=== PATIENT | male | born 1995 | race Caucasian/White ===

== ENCOUNTER 2016-07-13 19:36 | Emergency (ER) | payer SELFPAY | END 2016-07-13 20:50 | LOC: OHEAST 19:36 | DX: Z00.00 Encounter for general adult medical examination without abnormal findings (principal) | CPT/HCPCS: 99201; G0463 ==

== ENCOUNTER → 2016-07-31 17:48 | Emergency (ER) | payer BC ==
[~2016-07-31 17:48] MED LIST: Iohexol 300* (CONTRAST) 10 ML SDV IV ONE; NS 0.9% 1000 ML* 1,000 ML IV ONE; Omeprazole CAP* 20 MG PO ONE; Pantoprazole TAB (NF) 40 MG TAB PO ONE
[2016-07-31 19:44] LABS: Urine Bilirubin Negative (Negative); Urine Glucose Negative (Negative); Urine Nitrite Negative (Negative)
[2016-07-31 20:09] LABS: Hematocrit 44 % (42-52); Hemoglobin 14.9 g/dl (14.0-18.0); Mean Corpuscular HGB Conc 34 g/dl (31-36); Mean Corpuscular Hemoglobin 30 pg (27-31); Mean Corpuscular Volume 90 fL (80-94); Mean Platelet Volume 9 um3 (7.4-10.4); Red Blood Count 4.92 10^6/ul (4.0-5.4); Red Cell Distribution Width 14 % (10.5-15); White Blood Count 10.2 10^3/ul (3.5-10.8)
[2016-07-31 20:24] LABS: ALT 25 U/L (7-52); Albumin 4.5 g/dL (3.2-5.2); Alkaline Phosphatase 59 U/L (34-104); BUN/Creatinine Ratio 12.9 (8-20); Blood Urea Nitrogen 13 mg/dL (6-24); CO2 Carbon Dioxide 26 mmol/L (22-32); Calcium 9.5 mg/dL (8.6-10.3); Chloride 101 mmol/L (101-111); EGFR African American 117.7 (>60); EGFR Non-African American 91.5 (>60); Glucose 122 mg/dL (70-100); Lipase 25 U/L (11.0-82.0); Sodium 135 mmol/L (133-145); Total Protein 7.5 g/dL (6.4-8.9)
[2016-07-31 21:25] VITALS: BP 133/81
--- NOTE | 2016-07-31 21:46 | RAD ---
CLINICAL HISTORY: Abdominal pain COMPARISON: None TECHNIQUE: Multiple contiguous axial CT scans were obtained of the abdomen and pelvis after the administration of intravenous contrast. Coronal and sagittal multiplanar reformations are submitted for review. Oral contrast was administered. Delayed images were obtained through the abdomen and pelvis. FINDINGS: LUNG BASES: The lung bases are clear. LIVER: The liver is normal in shape, size, contour, and attenuation. BILE DUCTS: There is no intrahepatic or extrahepatic biliary dilatation. GALLBLADDER: The gallbladder is normal, without pericholecystic inflammatory change. PANCREAS: The pancreas is normal, without mass or ductal dilatation. SPLEEN: Normal in size and appearance. UPPER GI TRACT: Evaluation of the gastrointestinal tract is limited by incomplete gastric distention. The upper GI tract is unremarkable. SMALL BOWEL AND MESENTERY: The small bowel is normal in contour, course, and caliber. There is no obstruction or dilatation. COLON: The colon is normal in contour, course, caliber, measuring up to 0.5 cm in diameter. There is no pericolonic inflammatory change. There is a tubular, vermiform, hollow viscus that is blind ending, and originates from the cecum, consistent with a normal appendix. There is no periappendiceal inflammatory change. ADRENALS: Normal bilaterally. KIDNEYS: The kidneys are normal in shape, size, contour, and axis. There is no hydronephrosis or nephrolithiasis. BLADDER: The bladder is smooth in contour. PELVIC ORGANS: The prostate gland is normal. The seminal vesicles are symmetric. AORTA: The aorta is normal. IVC: Unremarkable LYMPH NODES: There is no lymphadenopathy by size criteria. ABDOMINAL WALL: There is no evidence for abdominal wall hernia. BONES AND SOFT TISSUES: Unremarkable OTHER: None IMPRESSION: NORMAL APPENDIX WITHOUT PERIAPPENDICEAL INFLAMMATORY CHANGE. NO ACUTE CT PATHOLOGY OF THE VISUALIZED ABDOMEN OR PELVIS
--- NOTE | 2016-08-01 02:28 | ED ---
Faviola Kingsley Rebecca, scribed for Rigo Rosalesuel on 07/31/16 at 1918 . Abdominal Pain/Male - HPI Summary HPI Summary: Pt is a 21 y/o M who presents to ED c/o umbilical abdominal pain. Pain began suddenly 3 days ago and has been constant since onset. Pain is characterized as sharp and is currently mild. Sx aggravated and alleviated by nothing, unchanged by OTC antacids. Additionally c/o nausea and blood in stool. Denies V/D. Reports prior similar episodes without a definitive Dx. No PSHx on the abdomen. Reports last eating a meal at 1200 today and a snack at 1700. - History of Current Complaint Chief Complaint: EDAbdPain Stated Complaint: ABD PAIN Time Seen by Provider: 07/31/16 19:11 Hx Obtained From: Patient Onset/Duration: Sudden Onset, Lasting Days - 3 days Timing: Constant Severity Initially: Mild Severity Currently: Mild Location: Umbilical Radiates: No Character: Sharp Aggravating Factor(s): Nothing Alleviating Factor(s): Nothing Associated Signs And Symptoms: Positive: Blood in Stool, Nausea. Negative: Vomiting, Diarrhea Similar Episode/Dx As:: Prior episodes, no Dx - Allergies/Home Medications Allergies/Adverse Reactions: Allergies Allergy/AdvReac Type Severity Reaction Status Date / Time No Known Allergies Allergy Verified 02/26/16 21:23 PMH/Surg Hx/FS Hx/Imm Hx Endocrine/Hematology History: Denies: Hx Diabetes Respiratory History: Denies: Hx Asthma Infectious Disease History: No Infectious Disease History: Denies: Traveled Outside the [place] in Last 30 Days - Family History Known Family History: Positive: Diabetes Negative: Cardiac Disease, Hypertension - Social History Alcohol Use: Occasionally Substance Use Type: Reports: None Smoking Status (MU): Light Every Day Tobacco Smoker Review of Systems Positive: Abdominal Pain - umbilical, Nausea. Negative: Vomiting, Diarrhea Positive: other - blood in stool All Other Systems Reviewed And Are Negative: Yes Physical Exam Triage Information Reviewed: Yes Vital Signs On Initial Exam: Initial Vitals Temp Pulse Resp BP Pulse Ox 97.5 F 51 16 163/74 100 07/31/16 17:50 07/31/16 17:50 07/31/16 17:50 07/31/16 17:50 07/31/16 17:50 Vital Signs Reviewed: Yes Appearance: Positive: Well-Appearing, No Pain Distress Skin: Positive: Warm, Skin Color Reflects Adequate Perfusion, Dry Head/Face: Positive: Normal Head/Face Inspection Eyes: Positive: EOMI, DEVAN ENT: Positive: Normal ENT inspection Respiratory/Lung Sounds: Positive: Clear to Auscultation, Breath Sounds Present Cardiovascular: Positive: RRR, Pulses are Symmetrical in both Upper and Lower Extremities Abdomen Description: Positive: Soft. Negative: Nontender - Tenderness in the RLQ and umbilical regions Bowel Sounds: Positive: Present Musculoskeletal: Positive: Normal, Strength/ROM Intact Neurological: Positive: Normal, Sensory/Motor Intact, Alert, Oriented to Person Place, Time - Kel[place] Coma Scale Coma Scale Total: 15 Diagnostics - Vital Signs Vital Signs Temp Pulse Resp BP Pulse Ox 07/31/16 18:49 52 99 07/31/16 18:48 148/73 07/31/16 18:45 98.3 F 53 18 148/73 98 07/31/16 17:50 97.5 F 51 16 163/74 100 - Laboratory Lab Results: Lab Results 07/31/16 07/31/16 07/31/16 Range/Units 19:23 19:55 19:55 WBC 10.2 (3.5-10.8) 10^3/ul RBC 4.92 (4.0-5.4) 10^6/ul Hgb 14.9 (14.0-18.0) g/dl Hct 44 (42-52) % MCV 90 (80-94) fL MCH 30 (27-31) pg MCHC 34 (31-36) g/dl RDW 14 (10.5-15) % Plt Count 218 (150-450) 10^3/ul MPV 9 (7.4-10.4) um3 Neut % (Auto) 72.4 (38-83) % Lymph % (Auto) 20.1 L (25-47) % Emanuel % (Auto) 5.9 (1-9) % Eos % (Auto) 1.2 (0-6) % Baso % (Auto) 0.4 (0-2) % Absolute Neuts (auto) 7.4 (1.5-7.7) 10^3/ul Absolute Lymphs (auto) 2.0 (1.0-4.8) 10^3/ul Absolute Monos (auto) 0.6 (0-0.8) 10^3/ul Absolute Eos (auto) 0.1 (0-0.6) 10^3/ul Absolute Basos (auto) 0 (0-0.2) 10^3/ul Absolute Nucleated RBC 0 10^3/ul Nucleated RBC % 0 INR (Anticoag Therapy) 0.91 (0.89-1.11) APTT 27.1 (26.0-36.3) seconds Sodium (133-145) mmol/L Potassium Chloride (101-111) mmol/L Carbon Dioxide (22-32) mmol/L Anion Gap BUN (6-24) mg/dL Creatinine (0.67-1.17) mg/dL Est GFR ( Amer) (>60) Est GFR (Non-Af Amer) (>60) BUN/Creatinine Ratio (8-20) Glucose (70-100) mg/dL Lactic Acid (0.5-2.0) mmol/L Calcium (8.6-10.3) mg/dL Total Bilirubin (0.2-1.0) mg/dL AST ALT (7-52) U/L Alkaline Phosphatase (34-104) U/L Total Protein (6.4-8.9) g/dL Albumin (3.2-5.2) g/dL Globulin (2-4) g/dL Albumin/Globulin Ratio (1-3) Lipase (11.0-82.0) U/L Urine Color Yellow Urine Appearance Clear Urine pH 6.0 (5-9) Ur Specific [place] 1.026 (1.010-1.030) Urine Protein Negative (Negative) Urine Ketones Negative (Negative) Urine Blood Negative (Negative) Urine Nitrate Negative (Negative) Urine Bilirubin Negative (Negative) Urine Urobilinogen Negative (Negative) Ur Leukocyte Esterase Negative (Negative) Urine Glucose Negative (Negative) 07/31/16 07/31/16 07/31/16 Range/Units 19:55 19:55 21:47 WBC (3.5-10.8) 10^3/ul RBC (4.0-5.4) 10^6/ul Hgb (14.0-18.0) g/dl Hct (42-52) % MCV (80-94) fL MCH (27-31) pg MCHC (31-36) g/dl RDW (10.5-15) % Plt Count (150-450) 10^3/ul MPV (7.4-10.4) um3 Neut % (Auto) (38-83) % Lymph % (Auto) (25-47) % Emanuel % (Auto) (1-9) % Eos % (Auto) (0-6) % Baso % (Auto) (0-2) % Absolute Neuts (auto) (1.5-7.7) 10^3/ul Absolute Lymphs (auto) (1.0-4.8) 10^3/ul Absolute Monos (auto) (0-0.8) 10^3/ul Absolute Eos (auto) (0-0.6) 10^3/ul Absolute Basos (auto) (0-0.2) 10^3/ul Absolute Nucleated RBC 10^3/ul Nucleated RBC % INR (Anticoag Therapy) (0.89-1.11) APTT (26.0-36.3) seconds Sodium 135 (133-145) mmol/L Potassium TNP 3.9 Chloride 101 (101-111) mmol/L Carbon Dioxide 26 (22-32) mmol/L Anion Gap TNP BUN 13 (6-24) mg/dL Creatinine 1.01 (0.67-1.17) mg/dL Est GFR ( Amer) 117.7 (>60) Est GFR (Non-Af Amer) 91.5 (>60) BUN/Creatinine Ratio 12.9 (8-20) Glucose 122 H (70-100) mg/dL Lactic Acid 2.1 H* (0.5-2.0) mmol/L Calcium 9.5 (8.6-10.3) mg/dL Total Bilirubin 0.40 (0.2-1.0) mg/dL AST TNP 24 ALT 25 (7-52) U/L Alkaline Phosphatase 59 (34-104) U/L Total Protein 7.5 (6.4-8.9) g/dL Albumin 4.5 (3.2-5.2) g/dL Globulin 3.0 (2-4) g/dL Albumin/Globulin Ratio 1.5 (1-3) Lipase 25 (11.0-82.0) U/L Urine Color Urine Appearance Urine pH (5-9) Ur Specific [place] (1.010-1.030) Urine Protein (Negative) Urine Ketones (Negative) Urine Blood (Negative) Urine Nitrate (Negative) Urine Bilirubin (Negative) Urine Urobilinogen (Negative) Ur Leukocyte Esterase (Negative) Urine Glucose (Negative) Result Diagrams: 07/31/16 19:55 07/31/16 21:47 Lab Statement: Any lab studies that have been ordered have been reviewed, and results considered in the medical decision making process. - CT Abd/Pel CT CT Interpretation: No Acute Changes - NORMAL APPENDIX WITHOUT PERIAPPENDICEAL INFLAMMATORY CHANGE. NO ACUTE CT PATHOLOGY OF THE VISUALIZED ABDOMEN OR PELVIS CT Interpretation Completed By: Radiologist Re-Evaluation - Re-Evaluation First Eval Re-Evaluation Time: 21:52 Change: Improved Comment: Pt is feeling significantly better. Discussed D/C plan with pt who understands and agrees. Abdominal Pain Fem Course/Dx - Course Assessment/Plan: MDM: Pt came in with abdominal pain. Labs and CT done. No acute abdominal findings. He will be D/C to home with Protonix and follow up with PCP in 3 days. - Diagnoses Differential Diagnosis/HQI/PQRI: Appendicitis, Diverticulitis Provider Diagnoses: Nonspecific abdominal pain Discharge - Discharge Plan Condition: Stable Disposition: HOME Prescriptions: Pantoprazole TAB (NF) [Protonix TAB (NF)] 40 mg PO DAILY #30 tab Patient Education Materials: Abdominal Pain (ED) Referrals: [place] DO MACHINE CRATER,Jo [Primary Care Provider] - 3 Days The documentation as recorded by the Faviola tam Rebecca accurately reflects the service I personally performed and the decisions made by , Remington Rosales.
== END | disposition home or self-care (01) ==
LOC: ED 17:48
DX: R10.84 Generalized abdominal pain (principal); R11.0 Nausea; K92.1 Melena
CPT/HCPCS: 36415; 74177; 80053; 81003; 83605; 83690; 85025; 85610; 85730; 99283; A9270-GY; Q9967

== ENCOUNTER 2016-10-20 17:54 | Emergency (ER) | payer SELFPAY ==
--- NOTE | 2016-10-20 20:19 | UC ---
Ryan Kingsley Alok, scribed for Senait Boston MD on 10/20/16 at 2014 . General HPI - HPI Summary HPI Summary: 21M presents to the [facility] seeking physical evaluation for physical fitness test in 6 days. Pt denies pain or recent injury. Pt denies CP or SOB. Pt denies sudden weight loss or blood in stool. Pt denies penis or testicular pain. Pt denies h/o hernia. Pt was last seen by his PCP one month ago for abd pain which resolved following medications and had endoscopy FU at [place] with normal results. Pt denies past medical problems, past surgeries, or regular medications. Pt smokes >1ppd. Pt drinks ETOH occasionally. Pt denies illicit drug use. Patient medications reviewed this visit. - History of Current Complaint Stated Complaint: ATHLETIC PHYSICAL Time Seen by Provider: 10/20/16 19:17 Hx Obtained From: Patient - Allergy/Home Medications Allergies/Adverse Reactions: Allergies Allergy/AdvReac Type Severity Reaction Status Date / Time No Known Allergies Allergy Verified 02/26/16 21:23 PMH/Surg Hx/FS Hx/Imm Hx Previously Healthy: Yes - Surgical History Surgical History: None - Family History Known Family History: Positive: Diabetes Negative: Cardiac Disease, Hypertension - Social History Occupation: Employed Full-time Lives: With Family Alcohol Use: Occasionally Substance Use Type: None Smoking Status (MU): Light Every Day Tobacco Smoker Review of Systems Constitutional: Negative Skin: Negative Eyes: Negative ENT: Negative Respiratory: Negative Cardiovascular: Negative Gastrointestinal: Negative Genitourinary: Negative Motor: Negative Neurovascular: Negative Musculoskeletal: Negative Neurological: Negative Psychological: Negative All Other Systems Reviewed And Are Negative: Yes Physical Exam Vital Signs: Initial Vital Signs Temp 97.2 F 10/20/16 20:20 Pulse 49 10/20/16 20:20 Resp 14 10/20/16 20:20 BP 124/49 10/20/16 20:20 Pulse Ox 100 10/20/16 20:20 Discharge - Discharge Plan Condition: Stable Disposition: HOME Patient Education Materials: Normal Exam (ED) Referrals: Jo Padilla RN [Primary Care Provider] - Additional Instructions: The doctor who evaluated you today did not identify any conditions on today's exam that should prevent you from taking the physical fitness test. If you develop any symptoms, pain, shortness of breath, chest pain or have any other concerns you should NOT participate in the test until you are re-evaluated by a health care provider The documentation as recorded by the Ryan tam Alok accurately reflects the service I personally performed and the decisions made by me, Senait Boston MD.
[2016-10-20 20:21] VITALS: BP 124/49
== END 2016-10-20 20:30 | disposition home or self-care (01) ==
LOC: OHEAST 17:54
DX: Z02.5 Encounter for examination for participation in sport (principal)
CPT/HCPCS: 99201; G0463

== ENCOUNTER 2018-12-15 14:12 | Emergency (ER) | payer BC ==
[2018-12-15 14:36] VITALS: BP 138/62
--- NOTE | 2018-12-15 14:50 | UC ---
Back Pain HPI - HPI Summary HPI Summary: 23 yo with hx of minor back pain in the past, had acute onset of pain yesterday when he bent forward to lift up weights at the gym. Pain brought him to his knees. Has been using ice and ibuprofen 600mg every 6 hours without relief. He also tried use of a muscle relaxant for pain without relief. No bowel or bladder incontinence. Had mild paresthesias in both feet but nothing persistent. Difficulty walking due to pain, sleep disrupted. - History of Current Complaint Chief Complaint: UCBackPain Stated Complaint: BACK PAIN AFTER LIFTING Time Seen by Provider: 12/15/18 14:39 Hx Obtained From: Patient Onset/Duration: Sudden Onset, Lasting Days - 1 Timing: Constant Severity Initially: Moderate Severity Currently: Moderate Pain Intensity: 8 Character: Aching, Spasmodic Alleviating Factor(s): Rest, Position - best lying on his abdomen Associated Signs And Symptoms: Negative: Fever, Weakness, Numbness, Tingling, Abdominal Pain, Flank Pain, Bladder Incontinence, Bowel Incontinence - Risk Factors AAA Risk Factors: Negative TAD Risk Factors: Negative Cauda Equina Risk Factors: Negative Epidural Abscess Risk Factors: Negative - Allergies/Home Medications Allergies/Adverse Reactions: Allergies Allergy/AdvReac Type Severity Reaction Status Date / Time No Known Allergies Allergy Verified 12/15/18 14:37 PMH/Surg Hx/FS Hx/Imm Hx Previously Healthy: Yes - Surgical History Surgical History: None - Family History Known Family History: Positive: Diabetes, Non-Contributory Negative: Cardiac Disease, Hypertension - Social History Occupation: Employed Full-time Lives: Alone Alcohol Use: Occasionally Substance Use Type: None Smoking Status (MU): Former Smoker Review of Systems All Other Systems Reviewed And Are Negative: Yes Constitutional: Positive: Negative Respiratory: Negative: Cough Genitourinary: Positive: Negative Motor: Positive: Decreased ROM Musculoskeletal: Positive: Arthralgia, Myalgia Neurological: Positive: Negative Psychological: Positive: Negative Is Patient Immunocompromised?: No Physical Exam Triage Information Reviewed: Yes Appearance: Well-Appearing, Pain Distress - moderate Vital Signs: Initial Vital Signs Temp 97.6 F 12/15/18 14:32 Pulse 72 12/15/18 14:32 Resp 16 12/15/18 14:32 BP 138/62 12/15/18 14:32 Pulse Ox 99 12/15/18 14:32 ENT: Positive: Normal ENT inspection Neck: Positive: Supple, Nontender, No Lymphadenopathy Respiratory: Positive: Lungs clear, Normal breath sounds Cardiovascular: Positive: RRR, No Murmur Musculoskeletal: Positive: Strength Intact, ROM Limited @ - lumbar spine, Other : - Flat lordotic curve. tender to palpation L1 to L4. Could not lie flat. extending foreleg at knee while sitting triggers pain in the low back, as does extension of the left foreleg at the knee at about 45 degrees. Neurological: Positive: Alert, Muscle Tone Normal Psychological Exam: Normal Skin Exam: Normal Diagnostics - Radiology No standard instances Radiology Interpretation Completed By: Radiologist Summary of Radiographic Findings: Normal aside from mild scoliosis per radiology report. Back Pain Course/Dx - Course Course Of Treatment: For pain control, use naproxen twice daily with food. CAREER PLACEMENT SPECIALIST search #[id number] - Differential Dx/Diagnosis Differential Diagnosis/HQI/PQRI: Cauda Equina Syndrome, Herniated Disc, Strain, Sprain Provider Diagnosis: Acute low back pain Discharge ED - Sign-Out/Discharge Documenting (check all that apply): Patient Departure All imaging exams completed and their final reports reviewed: Yes - Discharge Plan Condition: Stable Disposition: HOME Prescriptions: Diazepam TAB(*) [Valium TAB(*)] 10 mg PO BID PRN #6 tab MDD 2 PRN Reason: Spasms - Back Hydrocodone/Acetaminophen [[place] 5-325 Tablet] 2 each PO Q8H PRN #12 tablet MDD 6 PRN Reason: Pain - Moderate Naproxen [Naproxen 500 mg tab] 500 mg PO BID #40 tablet Patient Education Materials: Acute Low Back Pain (ED) Forms: *Work Release Referrals: No Primary Care Phys,NOPCP [Primary Care Provider] - Additional Instructions: You have a referral to physical therapy to begin working on muscle spasm. Discontinue ibuprofen and use naproxen 500mg twice daily with food. Use valium 10mg as a muscle relaxer up to 3 times daily x 2 days. BE CAUTIOUS OF SEDATION WITH BOTH VALIUM ALONE AND WITH HYDROCODONE. DO NOT OPERATE A MOTOR VEHICLE. Yse hydrocodone, a narcotic pain medication, 1 to 2 tablets as needed three times daily for 2 to 3 days. If your pain is not abating, I suggest that you call the [facility] in [place] (Dr. Jose J Perez) [phone]. - Billing Disposition and Condition Condition: STABLE Disposition: Home
== END 2018-12-15 16:02 | disposition home or self-care (01) ==
LOC: UCCORT 14:12
DX: M54.5 Low back pain (principal); Z87.891 Personal history of nicotine dependence
CPT/HCPCS: 72110; 99212; G0463